=== PATIENT | male | born 1990 | race Caucasian/White ===

== ENCOUNTER 2019-04-04 13:23 | Outpatient (CLI) | payer BC, SELFPAY ==
--- NOTE | ~2019-04-04 | XR_ITS ---
EXAMINATION: XR foot LT min 3V DATE: 04/04/2019 14:06 INDICATION: Left flank pain TECHNIQUE: Dorsoplantar, lateral, and 2 oblique views of the left foot were obtained. COMPARISON: None. FINDINGS: There is no fracture, dislocation, or subluxation. The bones, soft tissues, and joint space s are normal. IMPRESSION: 1. No acute osseous abnormality. Reviewed, dictated and finalized at location A. INTELLIGENCE OFFICER
== END 2019-04-04 13:24 | disposition home or self-care (01) ==
PROVIDERS: Visit Provider Podiatrist
DX: M79.672 Pain in left foot (principal)
CPT/HCPCS: 73630

== ENCOUNTER 2021-02-16 09:34 | Emergency (ER) | payer BC, SELFPAY ==
[2021-02-16 09:40] VITALS: BP 168/95; PULSE 103; RESP 20; TEMP 36.6; O2SAT 100
--- NOTE | 2021-02-16 09:45 | ED.URI ---
HPI - URI/Sore Throat General Chief Complaint: Upper Respiratory Infection Stated Complaint: Sore Throat Time Seen by Provider: 02/16/21 09:45 Source: patient and RN notes reviewed History of Present Illness HPI Narrative: Patient is a 30-year-old male who presents the urgent care with complaints of a sore throat for 2 days and postnasal drainage. Patient denies any fever, chills, nausea or vomiting. Denies any use of pubb-yrd-bjbiodr medication for pain. Denies any known COVID exposures. Patient has been COVID vaccinated. No other acute complaints. No acute distress noted. Patient aware of the plan of care. Some parts of this dictation were generated by voice recognition software and may contain typographical and/or grammatical inaccuracies. Related Data Home Medications Medication Instructions Recorded Confirmed No Home Medications 02/16/21 02/16/21 Allergies Allergy/AdvReac Type Severity Reaction Status Date / Time No Known Allergies Allergy Verified 02/16/21 09:50 Review of Systems Review of Systems: CONSTITUTIONAL: Denies fever, chills, or sweats. EYES: Denies visual changes, redness, or discharge. ENT: Denies rhinorrhea, congestion, otalgia. Reports of sore throat CARDIOVASCULAR: Denies chest pain, palpitations, or edema. RESPIRATORY: Denies cough or dyspnea. GASTROINTESTINAL: Denies abdominal pain, nausea, vomiting, or diarrhea. GENITOURINARY: Denies dysuria or hematuria. SKIN: Denies rash or itching. MUSCULOSKELETAL: Denies back pain, joint pain, or myalgia. NEUROLOGIC: Denies headache, numbness, or weakness. All other systems reviewed are negative, except as documented in HPI. PMFSH Comments At the time of my signature, I reviewed and agree with the nursing past medical, surgical, social, and family history. There is no relevant family history pertinent to the patient complaint. Exam Narrative: GENERAL: This is a well-nourished, well-developed patient, in no apparent distress. HEAD: normocephalic, atraumatic. EYES: PERRL. Sclera clear/white. Vision is grossly intact. EARS: External ears normal, auditory canals clear and without drainage, TMs normal without perforation. Hearing grossly intact. NOSE: External nose normal with no obvious nasal discharge, nares without redness, no rhinorrhea. THROAT: Mucous membranes moist. Moderate erythema noted posterior pharynx with moderate postnasal drainage NECK: Neck supple, non-tender mild bilateral submandibular lymphadenopathy CARDIOVASCULAR: Regular rate and rhythm without murmurs, gallops, or rubs. RESPIRATORY: Clear to auscultation. Breath sounds equal bilaterally. No wheezes, rales, or rhonchi. SKIN: warm, intact with no suspicious lesions or rash, good texture and turgor. NEURO: awake, alert, and oriented to person, place and time. There were no obvious focal neurologic abnormalities. EXTREMITIES: No clubbing, cyanosis, or edema. Course Course Level of Care: Express Care Visit Vital Signs Vital signs: Vital Signs Temperature 97.9 F 02/16/21 09:40 Pulse Rate 103 H 02/16/21 09:40 Respiratory Rate 20 02/16/21 09:40 Blood Pressure 168/95 H 02/16/21 09:40 Pulse Oximetry 100 02/16/21 09:40 Temperature 97.9 F 02/16/21 09:40 Pulse Rate 103 H 02/16/21 09:40 Respiratory Rate 20 02/16/21 09:40 Blood Pressure 168/95 H 02/16/21 09:40 Pulse Oximetry 100 02/16/21 09:40 Reviewed-patient is informed that they may have pre-hypertension or hypertension based on a blood pressure reading in the department. I recommend the patient call the primary care provider listed on their discharge instructions or a physician of their choice this week to arrange follow-up for further evaluation of possible pre-hypertension or hypertension. MDM - URI/Sore Throat MDM Narrative Medical decision making narrative: Reviewed lab results with the patient. He is aware that strep swab was negative. Educated patient on culture we will call within 72 hours of
== END 2021-02-16 10:10 | disposition home or self-care (01) ==
PROVIDERS: Emergency Provider Nurse Practitioner Family
DX: J02.9 Acute pharyngitis, unspecified (principal)
CPT/HCPCS: 87081; 87880; 99213; G0463